=== PATIENT | male | born 1990 | race Asian ===

== ENCOUNTER 2020-09-15 01:53 | Emergency (ER) | payer OTHER ==
[~2020-09-15] VITALS: Ht 180.3 cm; Wt 70.3 kg
[2020-09-15 01:56] VITALS: TEMP 98.4
[2020-09-15 04:00] VITALS: BP 140/82
== END 2020-09-15 04:12 | disposition home or self-care (01) ==
LOC: ED 01:53
DX: F41.8 Other specified anxiety disorders (principal); F32.89 Other specified depressive episodes
CPT/HCPCS: 80307; 99283

== ENCOUNTER 2020-12-07 22:26 | Emergency (ER) | payer OTHER ==
[~2020-12-07] VITALS: Ht 180.3 cm; Wt 70.3 kg
[2020-12-08 00:46] LABS: SODIUM 138 mmol/L (136-145)
[2020-12-08 00:50] LABS: PLATELET COUNT 235 K/uL (142-355)
[2020-12-08 00:54] LABS: PARTIAL THROMBOPLASTIN TIME 26.7 SECONDS (24.5-33.6)
[2020-12-08 03:55] VITALS: BP 140/84; TEMP 98.6
== END 2020-12-08 03:55 | disposition short-term general hospital (02) ==
LOC: ED 22:26
PROVIDERS: Family Medicine
DX: R94.31 Abnormal electrocardiogram [ECG] [EKG] (principal); F15.10 Other stimulant abuse, uncomplicated; B20 Human immunodeficiency virus [HIV] disease; Z11.52 Encounter for screening for COVID-19
CPT/HCPCS: 80053; 80307; 80320; 81000; 82550; 82553; 84484; 85027; 85610; 85730; 87635; 93005; 99284; U0003